=== PATIENT | female | born 1970 | race Caucasian/White ===

== ENCOUNTER 2018-06-15 20:14 | Observation (INO) | payer MEDICAID ==
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
[2018-06-15] MEDS ORDERED: Bacitracin Opht OINT 3.5GM OS STA (21:15)
[2018-06-15] MEDS ORDERED: Multivitamin (MVI) 10 ML, Thiamine 100 MG, Folic Acid 1 MG in Sodium Chloride 0.9% 1,00... IV ONE (21:15)
[2018-06-15 21:41] LABS: BASO # 0.1 K/uL (0.0-0.2); BASO % 2.1 % (0.0-2.0); EOS # 0.1 K/uL (0.0-0.7); EOS % 1.3 % (0.0-4.0); HEMOGLOBIN 8.7 g/dL (11.0-16.0); LYMPH # 3.1 K/uL (1.0-4.3); LYMPH % 56.2 % (20.0-40.0); MEAN CELL VOLUME 95.1 fL (81.0-99.0); MEAN CORPUSCULAR HEMOGLOBIN 32.5 pg (27.0-31.0); MEAN CORPUSCULAR HGB CONC 34.2 g/dL (33.0-37.0); MEAN PLATELET VOLUME 7.3 fL (7.2-11.7); MONO # 0.4 K/uL (0.0-0.8); MONO % 7.9 % (0.0-10.0); NEUT # 1.8 K/uL (1.8-7.0); NEUT % 32.5 % (50.0-75.0); NRBC % 0.2 % (0.0-2.0); RBC 2.68 Mil/uL (3.80-5.20); RED CELL DISTRIBUTION WIDTH 19.6 % (11.5-14.5); WHITE BLOOD COUNT 5.5 K/uL (4.8-10.8)
[2018-06-15 22:03] LABS: PROTHROMBIN TIME 11.3 SECONDS (9.7-12.2)
[2018-06-15 22:14] LABS: HCG,QUALITATIVE URINE NEGATIVE (NEGATIVE)
[2018-06-15 22:16] LABS: SQUAMOUS EPITHIAL 10 /hpf (0-5); URINE BACTERIA RARE (<OCC); URINE BILIRUBIN NEGATIVE (NEGATIVE); URINE BLOOD NEGATIVE (NEGATIVE); URINE CLARITY Hazy (Clear); URINE COLOR Straw (YELLOW); URINE GLUCOSE (UA) NORMAL (Normal); URINE LEUKOCYTE ESTERASE TRACE Leu/uL (Negative); URINE PROTEIN NEGATIVE (NEGATIVE); URINE UROBILINOGEN NORMAL mg/dL (0.2-1.0)
[2018-06-15 22:21] LABS: ALB/GLOB RATIO 0.8 (1.0-2.1); ALBUMIN 3.2 g/dL (3.5-5.0); ALT/SGPT 15 U/L (9-52); AST/SGOT 59 U/L (14-36); BLOOD UREA NITROGEN 5 mg/dL (7-17); CALCIUM 8.4 mg/dl (8.6-10.4); GFR NON-AFRICAN AMERICAN > 60
[2018-06-15 22:29] LABS: BARBITURATES, UR NEGATIVE (NEGATIVE); BENZODIAZEPINES, UR NEGATIVE (NEGATIVE); OPIATES, UR NEGATIVE (NEGATIVE); PHENCYCLIDINE, UR NEGATIVE (NEGATIVE)
[2018-06-15] MEDS ORDERED: Potassium Chloride 20 mEq/15 ml LIQ UD PO STA (22:46)
[2018-06-15] MEDS ORDERED: Potassium Chloride 20 mEq 100 ML ONE (23:07)
[2018-06-15] MEDS ORDERED: Potassium Chloride 20 mEq ER Tab PO ONE (23:08)
[2018-06-15] MEDS ORDERED: Potassium Chloride 20 mEq/15 ml LIQ UD ONE (23:13)
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
[2018-06-16] MEDS ORDERED: Glucagon Recombinant 1 mg Inj IM PRN (03:07)
[2018-06-16] MEDS ORDERED: Dextrose 50% SYRINGE Inj (50 ml) IV PRN (03:07)
[2018-06-16 03:15] VITALS: RESP 20
[2018-06-16] MEDS ORDERED: (Novolog) Insulin Aspart, Recombinant 100 u/ml 10 ml vial SC SCH (07:30)
[2018-06-16] MEDS ORDERED: Potassium Chloride 20 mEq/15 ml LIQ UD PO STA (07:49)
[2018-06-16 08:13] VITALS: TEMP 99; O2SAT 100
[2018-06-16 08:26] LABS: BASO % 0.2 % (0.0-2.0); EOS # 0.1 K/uL (0.0-0.7); EOS % 1.3 % (0.0-4.0); HEMOGLOBIN 8.7 g/dL (11.0-16.0); LYMPH # 3.6 K/uL (1.0-4.3); MEAN CELL VOLUME 96.8 fL (81.0-99.0); MEAN CORPUSCULAR HEMOGLOBIN 32.4 pg (27.0-31.0); MEAN CORPUSCULAR HGB CONC 33.5 g/dL (33.0-37.0); MEAN PLATELET VOLUME 8.1 fL (7.2-11.7); MONO # 0.9 K/uL (0.0-0.8); MONO % 10.4 % (0.0-10.0); NEUT # 3.8 K/uL (1.8-7.0); NEUT % 45.1 % (50.0-75.0); NRBC % 0.1 % (0.0-2.0); RBC 2.69 Mil/uL (3.80-5.20); RED CELL DISTRIBUTION WIDTH 19.7 % (11.5-14.5)
[2018-06-16 08:28] LABS: WHITE BLOOD COUNT 8.3 K/uL (4.8-10.8)
[2018-06-16] MEDS ORDERED: Iohexol 240 (50 ml) PO ONE (08:45)
[2018-06-16 08:52] LABS: ALB/GLOB RATIO 0.8 (1.0-2.1); ALT/SGPT 17 U/L (9-52); AST/SGOT 79 U/L (14-36); BLOOD UREA NITROGEN 4 mg/dL (7-17); CALCIUM 7.8 mg/dl (8.6-10.4); GFR NON-AFRICAN AMERICAN > 60
--- NOTE | 2018-06-16 09:09 | RAD ---
Date of service: 06/15/2018 HISTORY: SOB COMPARISON: None available. TECHNIQUE: 1 view obtained. FINDINGS: LUNGS: No active pulmonary disease. PLEURA: No significant pleural effusion identified, no pneumothorax apparent. CARDIOVASCULAR: No aortic atherosclerotic calcification present. Normal cardiac size. No pulmonary vascular congestion. OSSEOUS STRUCTURES: No significant abnormalities. VISUALIZED UPPER ABDOMEN: Normal. OTHER FINDINGS: None. IMPRESSION: No acute cardiopulmonary disease appreciated.
[2018-06-16 09:10] LABS: HEPATITIS B SURFACE AG Negative (NEGATIVE)
[2018-06-16 09:15] LABS: HEPATITIS B CORE AB NEGATIVE (NEGATIVE)
[2018-06-16] MEDS ORDERED: Iodixanol 320 MG/ML 100 ML BOTTLE IV ONE ×2 (09:17→13:34)
[2018-06-16 09:28] LABS: HEPATITIS C ANTIBODY NEGATIVE (NEGATIVE)
[2018-06-16] MEDS ORDERED: Multiple Vitamins Tab PO SCH (10:00)
[2018-06-16 10:30] LABS: FOLATE > 20.0 ng/mL
[2018-06-16] MEDS ORDERED: Potassium Chloride 20 mEq/15 ml LIQ UD PO ONE (10:30)
[2018-06-16 10:46] LABS: HEPATITIS A IGM NEGATIVE (NEGATIVE)
[2018-06-16] MEDS: Magnesium Sulfate 1 gm in D5W 1 GM/100 ML BAG IVPB SCH ×2 (10:53→10:55)
[2018-06-16 11:36] LABS: IRON 182 ug/dL (37-170)
[2018-06-16 11:45] LABS: % IRON SATURATION 93 (20-55); TOTAL IRON BINDING CAPACITY 195 ug/dL (250-450)
[2018-06-16] MEDS: (Novolog) Insulin Aspart, Recombinant 100 u/ml 10 ml vial SC SCH ×3 (12:08→23:09)
--- NOTE | 2018-06-16 12:40 | PCM.PSYCH ---
Initial Psychiatric Evaluation - Initial Psychiatric Evaluation Type of Admission: Voluntary Legal Status: Capacity History of Present Illness and Precipitating Events: Ms. Fuentes is a 48yo female with a PMH uncontrolled DM, liver failure, and pancreatitis here today for generalized weakness and pain. [facility] psychiatry was consulted. Patient reports of drinking up to 3-5 12-16 oz beers. She reports that she lives alone and she drinks daily. She denies any withdrawal symptoms from drinking. She reports anxiety and irritability but denies any depressed mood or any feelings of hopelessness or helplessness. She denies any suicidal ideation or any homicidal ideation. She denies any auditory hallucinations or any paranoia. Current Medications: Active Medications Generic Name Dose Route Start Last Admin Trade Name Freq PRN Reason Stop Dose Admin Chlordiazepoxide 25 mg 06/16/18 09:30 06/16/18 09:45 Librium PO 06/20/18 09:29 25 mg Q6 BUNNY Administration Taper Dextrose 0 ml 06/16/18 03:07 Dextrose 50% Inj IV STAT PRN Hypoglycemia Protocol Protocol Dextrose 0 gm 06/16/18 03:07 Glutose 15 PO ONCE PRN Hypoglycemia Protocol Protocol Enalapril Maleate 10 mg 06/16/18 13:00 Vasotec PO BID BUNNY Folic Acid 1 mg 06/16/18 10:00 06/16/18 09:13 Folic Acid PO 1 mg DAILY BUNNY Administration Glucagon 0 mg 06/16/18 03:07 Glucagen Diagnostic Kit IM STAT PRN Hypoglycemia Protocol Protocol Dextrose 1,000 mls @ 0 mls/hr 06/16/18 03:07 Dextrose 5% In Water 1000 Ml IV .Q0M PRN Hypoglycemia Protocol Protocol Per Protocol Insulin Aspart 0 unit 06/16/18 07:32 06/16/18 12:08 Novolog SC Not Given ACHS BUNNY Protocol Lorazepam 1 mg 06/16/18 02:37 06/16/18 04:33 Ativan IVP 1 mg Q6H PRN Administration Symptoms of alcohol withdrawl Multivitamins 1 tab 06/16/18 10:00 06/16/18 09:13 Hexavitamin PO 1 tab DAILY BUNNY Administration Nicotine 1 patch 06/16/18 10:00 06/16/18 09:13 Nicoderm Cq TD 1 patch DAILY BUNNY Administration Pneumococcal Polyvalent Vaccine 0.5 ml 06/19/18 10:00 Pneumovax 23 Vaccine IM 06/19/18 10:01 .ONCE ONE Thiamine HCl 100 mg 06/16/18 10:00 06/16/18 09:13 Vitamin B1 Tab PO 100 mg DAILY BUNNY Administration Past Psychiatric History - Past Psychiatric History Previous Treatment History: None Pertinent Medical Hx (Current Medical&Sleep Prob, Allergies): Allergies Allergy/AdvReac Type Severity Reaction Status Date / Time aspirin Allergy VOMITING Verified 06/15/18 20:25 Enalapril Maleate [Vasotec] 10 mg PO DAILY 06/16/18 Ferrous Sulfate [Feosol] 325 mg PO DAILY 06/16/18 Fluticasone Propionate [Flonase Allergy Relief] 1 spray NS DAILY PRN 06/16/18 Folic Acid 1 mg PO DAILY 06/16/18 Multivitamin [Multi-Vitamin Daily] 1 each PO DAILY 06/16/18 hydroCHLOROthiazide [Hydrodiuril] 25 mg PO DAILY 06/16/18 Review of Systems - Review of Systems All systems: reviewed and no additional remarkable complaints except - Psychiatric Psychiatric: Anxiety, Irritability. absent: Suicidal Ideation Mental Status Examination - Personal Presentation Personal Presentation: Looks stated age - Affect Affect: Constricted - Motor Activity Motor Activity: Calm - Reliability in Providing Information Reliability in Providing Information: Fair - Speech Speech: Organized - Mood Mood: Anxious - Formal Thought Process Formal Thought Process: No Impairment - Obsessions/Compulsions Obsessions: No Compulsions: No - Cognitive Functions Orientation: Person, Place, Situation, Time Sensorium: Alert Attention/Concentration: Attentive Abstract Thinking: Sunbright Estimate of Intelligence: Below average Judgement: Imparied, as evidence by: Poor judgement, Imparied, as evidence by: Lack of insight into illness - Risk Risk: Diminished functioning - Limitations Limitations: Living alone DSM 5 DX - DSM 5 DSM 5 Diagnosis: Alcohol use disorder moderate depressive disorder - Recommended/Plan of Treatment Treatment Recommendations and Plan of Treatment: Alcohol use disorder moderate depressive disorder Pt psychiatrically cleared
[2018-06-16 12:55] VITALS: BP 141/89
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
[2018-06-16 17:51] VITALS: PULSE 99
[2018-06-16] MEDS ORDERED: Erythromycin 0.5% Ophth Oint 1 APPLIC/3.5 G OU SCH (18:00)
--- NOTE | 2018-06-16 18:18 | CARD ---
APPROVED REPORT Date of service: 06/15/2018 EKG Measurement Heart [id number] <Conclusion> Normal sinus rhythm Possible Left atrial enlargement Cannot rule out Anteroseptal infarct, age undetermined Abnormal ECG
--- NOTE | 2018-06-16 18:36 | CT ---
Date of service: 06/16/2018 PROCEDURE: CT Abdomen and Pelvis with contrast HISTORY: ABD DISTENSION, POOR INTAKE COMPARISON: None. TECHNIQUE: Intravenous contrast dose: 60 cc Visipaque 320. Radiation dose: Total exam DLP = 193.97 mGy-cm. This CT exam was performed using one or more of the following dose reduction techniques: Automated exposure control, adjustment of the mA and/or kV according to patient size, and/or use of iterative reconstruction technique. FINDINGS: LOWER THORAX: Incompletely visualized atelectasis, honeycombing at the lung bases. Bronchitic changes suspected. LIVER: Unremarkable. No gross lesion or ductal dilatation. GALLBLADDER AND BILE DUCTS: Unremarkable. PANCREAS: Unremarkable. No gross lesion or ductal dilatation. SPLEEN: Unremarkable. ADRENALS: Unremarkable. No mass. KIDNEYS AND URETERS: Right kidney: Cortical scarring upper pole posteriorly likely the sequela of prior pyelonephritis. Unremarkable. No hydronephrosis. No solid mass. VASCULATURE: Unremarkable. No aortic aneurysm. Atherosclerotic calcification and mural plaque present. Findings are seen throughout the aorta which is non aneurysmal. BOWEL: Fecal impaction, constipation without mechanical obstruction. APPENDIX: A normal appendix is visualized in it's entirety. PERITONEUM: Unremarkable. No free fluid. No free air. LYMPH NODES: Unremarkable. No enlarged lymph nodes. BLADDER: Unremarkable. REPRODUCTIVE: Unremarkable. BONES: No acute fracture. OTHER FINDINGS: None. IMPRESSION: No significant or acute findings to account for/ related to the clinical presentation. Additional benign and/or incidental findings described above.
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
--- NOTE | 2018-06-17 13:50 | CT ---
Date of service: 06/16/2018 PROCEDURE: CT ORBITS/ FACIAL WITH CONTRAST. HISTORY: FACIAL SWELLING, EYE SWELLING CORNEAL ULCER COMPARISON: None available. TECHNIQUE: Following administration of intravenous iodinated contrast, axial CT images of the orbits were obtained. Coronal and sagittal reformats were generated. Intravenous contrast dose: 40 mL of Visipaque 320 Radiation dose: Total exam DLP = 695.42 mGy-cm. This CT exam was performed using one or more of the following dose reduction techniques: Automated exposure control, adjustment of the mA and/or kV according to patient size, and/or use of iterative reconstruction technique. FINDINGS: RIGHT ORBIT: RIGHT BONY ORBIT: Normal. RIGHT INTRAORBITAL STRUCTURES: Globe: Normal. Extraocular muscles: Normal. Post septal space: Normal. Optic Nerve: Normal. Lacrimal Apparatus: Normal. RIGHT PRESEPTAL SOFT TISSUES: Possible minimal thickening LEFT ORBIT: LEFT BONY ORBIT: Normal. LEFT INTRAORBITAL STRUCTURES: Globe: Normal. Extraocular muscles: Normal. Post septal space: Normal. Optic Nerve: Normal. Lacrimal Apparatus: Normal. LEFT PRESEPTAL SOFT TISSUES: Possible minimal thickening-left slightly greater on these images than right. Correlate clinically OTHER: Nonspecific benign-appearing bilateral cervical lymph nodes No CT appreciated criteria for lymphadenopathy seen. Dental amalgam artifact noted IMPRESSION: Perceived slight thickening of preseptal soft tissues bilateral-left possibly greater than right. Correlate clinically. No focal fluid collection seen. Based on history-consider ophthalmology consultation/follow-up Other findings as above. Apart from the aforementioned slight thickening of the preseptal soft tissues bilaterally, this report is concordant with the preliminary [facility] report.
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
[2018-06-19] MEDS ORDERED: Pneumococcal 23-Valent Vaccine IM ONE (10:00)
== END 2018-06-16 23:40 | disposition left against medical advice (07) ==
LOC: C.ER 20:14 → C.9E 22:55 → C.6T 06-16 01:16
PROVIDERS: ADMIT Internal Medicine; ATTEND Internal Medicine
DX: E87.6 Hypokalemia (principal); D64.9 Anemia, unspecified; E11.9 Type 2 diabetes mellitus without complications; F10.239 Alcohol dependence with withdrawal, unspecified; F17.210 Nicotine dependence, cigarettes, uncomplicated; F32.9 Major depressive disorder, single episode, unspecified; G89.29 Other chronic pain; I10 Essential (primary) hypertension; J45.909 Unspecified asthma, uncomplicated; K12.1 Other forms of stomatitis; Z88.6 Allergy status to analgesic agent; Z91.14 Patient's other noncompliance with medication regimen; Z91.19 Patient's noncompliance with other medical treatment and regimen
CPT/HCPCS: 36415; 70481; 71045; 74177; 80053; 80074; 80320; 80324; 80345; 80346; 80349; 80353; 80358; 80361; 81001; 82607; 82746; 82948; 83036; 83540; 83550; 83735; 83992; 84100; 84703; 85025; 85610; 85730; 86850; 86900; 93005; 96365; 96366; 96374; 96375; 97116; 97162; 99285; G0378; G8978; G8979; J1885; J2060; J3411; J3475; J3480; J7030; Q9966; Q9967